=== PATIENT | male | born 1970 | race Caucasian/White ===

== ENCOUNTER 2024-08-31 08:18 | Emergency (ER) | payer OTHER, SELFPAY ==
--- NOTE | 2024-08-31 08:22 | ED_ITS ---
HPI - URI/Sore Throat General Chief Complaint: Upper Respiratory Infection Stated Complaint: SINUS HEADACHE Time Seen by Provider: 08/31/24 08:22 Source: patient Mode of arrival: ambulatory Limitations: no limitations History of Present Illness HPI Narrative: Danny is a 54 year old female patient presenting to the clinic today with c/o right side forehead sinus headache, nasal congestion, postnasal drip, and cough. Cough is nonproductive. States he thinks his headache may be due to a fractured tooth that occurred 1.5 weeks ago. States he has felt feverish but has not checked his temperature. Has been taking Aleve, ibuprofen, naproxen, Excedrin, and Tylenol for his headache without relief. Currently rates his headache a 8/10. No nausea or vomiting. No history migraine headaches. Denies any chest pain or shortness of breath. Related Data Home Medications ?Medication ?Instructions ?Recorded ?Confirmed ?Last Taken ?Type aripiprazole 2 mg tablet mg 08/31/24 Unknown History cariprazine 1.5 mg capsule mg 08/31/24 Unknown History (Vraylar) clonazepam 1 mg tablet mg 08/31/24 Unknown History clonidine HCl 0.3 mg tablet mg 08/31/24 Unknown History fluoxetine 40 mg capsule mg 08/31/24 Unknown History lisinopril 40 mg tablet mg 08/31/24 Unknown History Allergies Allergy/AdvReac Type Severity Reaction Status Date / Time No Known Allergies Allergy Verified 08/31/24 08:29 Review of Systems Review of Systems: Pertinent positives per HPI. Patient denies any rash, visual changes, dizziness, shortness of breath, chest pain, palpitations, nausea, vomiting, diarrhea, constipation, abdominal pain, or any urinary issues. PMFSH Comments At the time of my signature, I reviewed and agree with the nursing past medical, surgical, social, and family history. There is no relevant family history pertinent to the patient complaint. Exam Narrative: General: Well-developed, well nourished, in no apparent distress Head: Normocephalic, atraumatic Eyes: Pupils equally round and reactive to light bilaterally, EOM intact, sclera and conjunctive clear, no discharge, lids normal Ears: TMs intact and congested, ear canals clear, no drainage, grossly hearing normal. Nose: Nares patent, clear nasal discharge, mild inflammation, frontal sinus tenderness. Mouth: Oral pharynx red without lesions or masses, poor dentition, MMM. No obvious tooth fracture, postnasal drip Neck: Supple, trachea midline, no enlargement of anterior or posterior cervical nodes, no thyroid masses or goiter palpable. Cardio: Regular rate and rhythm, s1 and s2 normal, no murmur appreciated. Resp: Clear to auscultation bilaterally, no rhonchi, rales, wheezing or rubs Course Course Emergency Course: Portions of this record may have been created with voice recognition software. Level of Care: Express Care Visit Vital Signs Vital signs: Vital Signs Temperature 36.3 C L 08/31/24 08:33 Pulse Rate 79 08/31/24 08:33 Respiratory Rate 16 08/31/24 08:33 Blood Pressure 123/93 H 08/31/24 08:33 Pulse Oximetry 99 08/31/24 08:33 Temperature 36.3 C L 08/31/24 08:33 Pulse Rate 79 08/31/24 08:33 Respiratory Rate 16 08/31/24 08:33 Blood Pressure 123/93 H 08/31/24 08:33 Pulse Oximetry 99 08/31/24 08:33 Vital signs reviewed MDM - URI/Sore Throat MDM Narrative Medical decision making narrative: At the time of visit patient is resting comfortably on the exam table. Patient appears to be nontoxic. C/o right side forehead sinus headache, nasal congestion, postnasal drip, and cough. Cough is nonproductive. States he thinks his headache may be due to a fractured tooth that occurred 1.5 weeks ago. States he has felt feverish but has not checked his temperature. Has been taking Aleve, ibuprofen, Excedrin, and Tylenol for his headache without relief. Currently rates his headache a 8/10. No nausea or vomiting. No history of mi graine headaches. Denies any chest pain or shortness of breath. Labs: COVID and influenza testing was negative in the clinic today. Plan: I suspect patient has URI/sinus headache. Prescription for prednisone was sent to the pharmacy. Supportive measures were discussed with the patient and they voiced understanding discharge instructions and agrees to treatment plan. Return precautions reviewed Differential Diagnosis Differential diagnosis: Likely otitis media, sinusitis, viral infection, bronchitis, influenza, pharyngitis and other (COVID); Unlikely upper respiratory infection Lab Data Labs: Lab Results 08/31/24 Range/Units 08:59 POC Influenza A Ag Negative (Negative) POC Influenza B Ag Negative (Negative) POC SARS CoV-2 Ag Negative (Negative) Discharge Plan Discharge Clinical Impression: Sinus headache Upper respiratory infection Qualifiers: URI type: unspecified URI Qualified Code(s): J06.9 - Acute upper respiratory infection, unspecified Patient Disposition: Home Condition: Stable Instructions: Antibiotic Form, Acute Headache (ED), Cold Symptoms (ED) Additional Instructions: COVID and influenza testing was negative in the clinic today. Take prescription medications only as prescribed-prednisone Increase fluids and stay well hydrated Tylenol/motrin for pain/fever Flonase and OTC antihistamines as directed Vicks vapor rub to open sinuses Sinus rinses for congestion Cepacol spray, cough drops, throat lozenges, warm tea with honey/lemon, gargle salt water to soothe throat BRAT diet for diarrhea Clear liquids x 24 hours then advance as tolerated for nausea/vomiting Go to the ED if you develop a worsening in your condition- high fever not controlled by Tylenol or Motrin, dehydration, weakness, lethargy, shortness of breath, or chest pain. Follow up with your PCP in 3-5 days if symptoms persist. Patient Language: East [place]orese Prescriptions: New prednisone 20 mg tablet 40 mg PO DAILY 5 Days Qty: 10 0RF No Action fluoxetine 40 mg capsule clonidine HCl 0.3 mg tablet clonazepam 1 mg tablet lisinopril 40 mg tablet aripiprazole 2 mg tablet Vraylar 1.5 mg capsule Follow-up/Referrals: UNKNOWN,DOCTOR [Primary Care Provider] - Time of Disposition: 09:14 Quality NIHSS Nursing Documentation ED NIHSS nursing documentation: reviewed/agree
[2024-08-31 08:33] VITALS: BP 123/93; PULSE 79; RESP 16; TEMP 36.3; O2SAT 99
[2024-08-31 09:01] LABS: EDCOVIDSCREEN Negative (Negative)
[2024-08-31 09:02] LABS: EDINFLUASCREEN Negative (Negative); EDINFLUBSCREEN Negative (Negative)
== END 2024-08-31 09:22 | disposition home or self-care (01) ==
PROVIDERS: Emergency Provider Nurse Practitioner Family
DX: H51.9 Unspecified disorder of binocular movement (principal); J06.9 Acute upper respiratory infection, unspecified; Z20.822 Contact with and (suspected) exposure to COVID-19; I10 Essential (primary) hypertension
CPT/HCPCS: 87426; 87804; 99203; G0463

== ENCOUNTER 2024-09-26 12:09 | Emergency (ER) | payer OTHER, SELFPAY ==
--- NOTE | ~2024-09-26 | XR_ITS ---
EXAMINATION: XR toe 1st RT min 2V DATE: 09/26/2024 13:12 INDICATION: Swelling, infection, history of multiple surgeries, osteomyelitis TECHNIQUE: 2 COMPARISON: None FINDINGS: Orthopedic screws are noted in the first metatarsal without radiographic evidence for loosening. Orthopedic screw in the proximal phalanx of the great toe without radiographic evidence for loosening. Metallic screw in the middle and proximal phalanges of the second toe without radiographic evidence for loosening. No fracture. No dislocation. Soft tissue swelling is noted. Moderate narrowing of the first metatarsophalangeal joint. Possible subluxation of the second metatarsophalangeal joint. There are moderate-sized lucencies in the head of the proximal phalanx of the great toe and base of the distal phalanx of the great toe. There is bony irregular about the interphalangeal joint of the great toe. Findings are concerning for osteomyelitis. IMPRESSION: 1.There are moderate-sized lucencies in the head of the proximal phalanx of the great toe and base of the distal phalanx of the great toe. There is bony irregular about the interphalangeal joint of the great toe. Findings are concerning for osteomyelitis in the proximal and distal phalanges of the great toe. Consider an MRI with and without contrast for further assessment. 2.Possible subluxation of the second metatarsophalangeal joint. Reviewed, dictated and finalized at location Q. IMPRESSION: 1.There are moderate-sized lucencies in the head of the proximal phalanx of the great toe and base of the distal phalanx of the great toe. There is bony irreg ular about the interphalangeal joint of the great toe. Findings are concerning for osteomyelitis in the proximal and distal phalanges of the great toe. Consid er an MRI with and without contrast for further assessment. 2.Possible subluxation of the second metatarsophalangeal joint.
--- OUTSIDE RECORDS SUMMARY | 2024-09-26 12:14 | XMS_ITS | Encounter Summary ---
Author Organization [facility] Address [address] [place] [address] Care Team Providers Care Mount Loader Name Role Phone Unavailable Primary Care Provider Unavailabl e Encounter Details Date Type Department Care Team (Late st Contact Info) Description 05/22/2024 MyChart Message Enc [facility] Medical [facility] [address] [place] [phone] Jing Doran, MANAGER LIFE [address] [place] [address] I never received Social History Tobacco Use Types Packs/Day Years Used Date Smoking Tobacco: Never Passive Smoke Exposure: Past Smokeless Tobacco: Never Alcohol Use Standard Drinks/Week Comments Not Currently 0 (1 standard drink = 0.6 oz pur e alcohol) PHQ-2 Answer Date Recorded Patient Health Questionnaire-2 Score 6 04/01/2024 Sex and Gender Information Value Date Recorded Sex Assigned at Male 04/01/2024 11:09 AM CABLE SPLICER Legal Sex Male 9:36 PM CABLE SPLICER Gender Identity Not on file Sexual Orientation Not on file documented as of this encounter Plan of Treatment Not on file documented as of this encounter Visit Diagnoses Not on filedocumented in this encounter Additional Health Concerns Assessment Noted Time PHQ-9 Depression Total Score: 20 025 11:26 AM CABLE SPLICER documented as of this encounter
--- OUTSIDE RECORDS SUMMARY | 2024-09-26 12:14 | XMS_ITS | Clinical Summary ---
Author Organization [facility] Address [address] [place] [address] Care Team Providers Care Research Worker Encyclopedia Name Role Phone Unavailable Primary Care Provider Unavailabl e Allergies Active Allergy Reactions Criticality Noted Date Comments Citalopram Other (see comment),Unknown 11/10/2019 Caused tongue to swell up Diclofenac GI Upset,Nausea Only 07/13/2014 caused problems with my stomach ulcers Haloperidol Other (see comment) High 04/01/2024 Tardive dyskinesia Methocarbamol GI Upset,Nausea Only 07/13/2014 caused problems with my stomach ulcers Morphine Nausea Only,Other (s ee comment),Unknown 10/02/2014 constipation Medications doxepin (SINEQUAN) 50 MG capsule Take 1 capsule (50 mg total) by mouth. 4 Active lisinopril (PRINIVIL) 10 MG tablet Take 1 tablet (10 mg total) by mouth every morning. 4 11/19/19 25 Active pregabalin (LYRICA) 200 MG capsule Take 1 capsule (200 mg total) by mouth. 4 Active QUEtiapine (SEROQUEL) 100 MG tablet Take 0.5 tablets (50 mg total) by mouth. 4 Active BELSOMRA 15 MG Tab Take 1 tablet by mouth daily. 5 Active chlordiazePOXIDE (LIBRIUM) 25 MG capsule 5 Active omeprazole (PRILOSEC) 20 MG capsule Take 1 capsule (20 mg total) by mouth daily. Active buPROPion SR (WELLBUTRIN SR) 150 MG 12 hr tablet Take 1 tablet (150 mg total) by mouth 2 (two) times daily. Active B ebrdsbh-S-veozq acid 0.8 mg (DIALYVITE/NEPHRO -SUNIL) Tab tablet Take 1 tablet by mouth daily. Active docusate (COLACE) 50 MG/5ML liquid Take 5 mLs (50 mg total) by mouth daily. Active fish oil (OMEGA-3 FATTY ACID) 1000 MG Cap capsule Take 1 capsule (1,000 mg total) by mouth 2 (two) times daily. Active prazosin (MINIPRESS) 1 MG capsule Take 1 capsule (1 mg total) by mouth nightly at bedtime. Active prazosin (MINIPRESS) 2 MG capsule Take 1 capsule (2 mg total) by mouth nightly at bedtime. Active sertraline (ZOLOFT) 100 MG tablet Take 1 tablet (100 mg total) by mouth daily. Active loratadine (CLARITIN) 10 MG tablet Take 1 tablet (10 mg total) by mouth daily. Active melatonin 1 MG tablet Take 1 tablet (1 mg total) by mouth nightly as needed. Active propranolol (INDERAL) 10 MG tablet Take 1 tablet (10 mg total) by mouth nightly at bedtime. Pt taking qhs only Active hydrOXYzine (VISTARIL) 50 MG capsule Take 1 capsule (50 mg total) by mouth 3 (three) times daily as needed for Itching. Active tiZANidine (ZANAFLEX) 4 MG tabletIndications :Foot spasms Take 1 tablet (4 mg total) by mouth every 4 (four) hours as needed. 120 tablet 1 5 Active silver sulfADIAZINE (SILVADENE) 1 % creamIndications: Cellulitis of foot Apply topically daily. 30 g 3 5 Active Active Problems Problem Noted Date Diagnosed Date Acquired hallux varus of right foot 04/11/2024 Painful orthopaedic hardware 04/11/2024 Hammer toe of right foot 04/11/2024 Lumbar degenerative disc disease 12/03/2023 Foot spasms 10/24/2022 Passive suicidal ideations 11/24/2021 Borderline personality disorder ([facility] ) 08/19/2021 Insomnia due to other mental disorder 03/15/2021 Restless legs syndrome 06/07/2020 Overview (04/01/2024): Last Assessment & Plan: Condition: stable Follow up in: three months Bipolar 2 disorder ([facility]) 04/13/2020 FELIBERTO (generalized anxiety disorder) 11/10/2019 MDD (major depressive disord er), recurrent episode, moderate 11/10/2019 Bipolar 1 disorder ([facility]) 03/14/2019 Overview (04/01/2024): Last Assessment & Plan: Condition: symptomatic No recent mental health visit. Advised to follow up Medications: Taking medications as prescribed If taking medications, do not stop treatment without consulting healthcare provider. If symptoms worsen or do not improve/stabilize, notify health care provider right away. If thoughts of harming self or others notify health care provider immediately &/or seek urgent/emergent care including calling Suicide Hotline (932 or ) or 921. Follow up in three months with PCP Bipolar disorder with depression ([facility]/ [facility]) 03/14/2019 Hypertriglyceridemia 03/14/2019 Essential hypertension 01/25/2018 Overview (04/01/2024): Last Assessment & Plan: Condition: stable Follow up in: three months Chronic post-traumatic stress disorder 7 Overview (04/01/2024): Last Assessment & Plan: Condition: symptomatic Follow up in: three months History of substance abuse 11/10/2016 Lumbar disc herniation with radiculopathy 2014 Immunizations Immunization Administration Dates Next Due Fluzone (IIV3, Trivalent, 0.5 ML Prefilled Syrin ) 04/01/2024 Family History Relation Status Comments Father Mother Social History Tobacco Use Types Packs/Day Years Used Date Smoking Tobacco: Never Passive Smoke Exposure: Past Smokeless Tobacco: Never Tobacco Cessation:Counseling Given: No Alcohol Use Standard Drinks/Week Comments Not Currently 0 (1 standard drink = 0.6 oz pur e alcohol) PHQ-2 Answer Date Recorded Patient Health Questionnaire-2 Score 6 04/01/2024 Sex and Gender Information Value Date Recorded Sex Assigned at Male 04/01/2024 11:09 AM BID MANAGER Legal Sex Male 9:36 PM BID MANAGER Gender Identity Not on file Sexual Orientation Not on file Last Filed Vital Signs Vital Sign Reading Time Taken Comments Blood Pressure 132/86 05/05/2024 9:03 AM CDT Pulse 96 06/05/2024 10:41 AM CDT Temperature 36.1 C (97 F) 04/30/2024 2:11 PM CDT Respiratory Rate 18 04/30/2024 2:46 PM CDT Oxygen Saturation 99% 06/05/2024 10:41 AM CDT Inhaled Oxygen Concentration - - Weight 97.5 kg (215 lb) 04/30/2024 11:30 AM CDT Height 182.9 cm (6') 04/30/2024 11:30 AM CDT Body Mass Index 29.16 04/30/2024 11:30 AM CDT Plan of Treatment Health Maintenance Due Date Last Done Comments Colorectal Cancer Screening Colonoscopy (10 Years) 1972 Hepatitis C 1990 Hepatitis B Vaccines (1 of 3 - 19+ 3-dose series) 05/20/1991 Pneumococcal Vaccine: 50+ Years (1 of 1 - PCV) 2022 Zoster Vaccines (1 of 2) 2022 COVID-19 Vaccine (4 - 2023-2 5 season) 2023 01/04/2021, 04/15/2020, 03/16/2020 Annual Physical 04/01/2025 04/01/2024 DTaP, Tdap and Td Vaccines ( 2 - Td or Tdap) 01/25/2028 01/24/2018 PHQ-2 (Physician [place]) Completed 04/01/2024 Meningococcal B Vaccine Aged Out No l onger eligible based on patient's age to complete this topic Meningococcal Vaccine Aged Out No jessica abraham eligible based on patient's age to complete this topic RSV Immunizations Under 20 Months Aged Out No longer eligible b ased on patient's age to complete this topic Medical Devices Implanted Type Area Surveillance Manager Device Identifier Shelf Expiration Date Model / Serial / Lot Screw Acutrak 2 Mini 16.0mm - [id number] Implanted:Qty: 1 on 04/30/2024 by Jarett Han DPM at [facility] Screw Right: Toe [employer] 03/25/2030 [id number] / / [id number] Explanted Type Area Surveillance Manager Device Identifier Shelf Expiration Date Model / Serial / Lot Drill Bit Micro Acumed - [id number] Explanted:Qty: 1 on 04/30/2024 at [facility] Drill Right: Toe [employer] [id number] / / Drill Acumed Mini - [id number] Explanted:Qty: 1 on 04/30/2024 at [facility] Drill Right: Toe [employer] [id number] / / Drill Bit Mini Cannulated Accutrak 2 [employer] - [id number] Explanted:Qty: 1 on 04/30/2024 at [facility] Drill Right: Toe [employer] [id number] / / Drill Bit Micro [employer]umed - [id number] Explanted:Qty: 1 on 04/30/2024 at [facility] Drill Right: Toe [employer] [id number] / / Insurance
--- OUTSIDE RECORDS SUMMARY | 2024-09-26 12:14 | XMS_ITS | Encounter Summary ---
Author Organization [facility] Address [address] [place] [address] Care Team Providers Care Instrument And Electrical Technician Name Role Phone Unavailable Primary Care Provider Unavailabl e Encounter Details Date Type Department Care Team (Late st Contact Info) Description 05/29/2024 MyChart Message Enc [facility] [place] [address] [facility], [place] [address] Jarett Han, DPCarly [address] [place] [phone] My big toe Social History Tobacco Use Types Packs/Day Years Used Date Smoking Tobacco: Never Passive Smoke Exposure: Past Smokeless Tobacco: Never Alcohol Use Standard Drinks/Week Comments Not Currently 0 (1 standard drink = 0.6 oz pur e alcohol) PHQ-2 Answer Date Recorded Patient Health Questionnaire-2 Score 6 04/01/2024 Sex and Gender Information Value Date Recorded Sex Assigned at Male 04/01/2024 11:09 AM STOCK PREPARATION SUPERVISOR Legal Sex Male 9:36 PM STOCK PREPARATION SUPERVISOR Gender Identity Not on file Sexual Orientation Not on file documented as of this encounter Plan of Treatment Not on file documented as of this encounter Visit Diagnoses Not on filedocumented in this encounter Additional Health Concerns Assessment Noted Time PHQ-9 Depression Total Score: 20 025 11:26 AM STOCK PREPARATION SUPERVISOR documented as of this encounter
--- OUTSIDE RECORDS SUMMARY | 2024-09-26 12:14 | XMS_ITS | Encounter Summary ---
Author Organization [facility] Address [address] [place] [address] Care Team Providers Care Counselor Aide Name Role Phone Unavailable Primary Care Provider Unavailabl e Encounter Details Date Type Department Care Team (Late st Contact Info) Description 06/01/2024 MyChart Message Enc [facility] [place] [address] [facility], [place] [address] Jarett Han, DPCarly [address] [place] [phone] Purple in spots Social History Tobacco Use Types Packs/Day Years Used Date Smoking Tobacco: Never Passive Smoke Exposure: Past Smokeless Tobacco: Never Alcohol Use Standard Drinks/Week Comments Not Currently 0 (1 standard drink = 0.6 oz pur e alcohol) PHQ-2 Answer Date Recorded Patient Health Questionnaire-2 Score 6 04/01/2024 Sex and Gender Information Value Date Recorded Sex Assigned at Male 04/01/2024 11:09 AM CUSTOM APPLICATOR Legal Sex Male 9:36 PM CUSTOM APPLICATOR Gender Identity Not on file Sexual Orientation Not on file documented as of this encounter Plan of Treatment Not on file documented as of this encounter Visit Diagnoses Not on filedocumented in this encounter Additional Health Concerns Assessment Noted Time PHQ-9 Depression Total Score: 20 025 11:26 AM CUSTOM APPLICATOR documented as of this encounter
--- OUTSIDE RECORDS SUMMARY | 2024-09-26 12:14 | XMS_ITS | Encounter Summary ---
Author Organization [facility] Address [address] [place] [address] Care Team Providers Care Child Health Associate Name Role Phone Unavailable Primary Care Provider Unavailabl e Encounter Details Date Type Department Care Team (Late st Contact Info) Description 05/15/2024 MyCQuantumt Message Enc [facility] Medical [facility] [place] [address] [facility], [place] [address] Jarett Han, DPCarly [address] [place] [phone] My foot is bleeding Social History Tobacco Use Types Packs/Day Years Used Date Smoking Tobacco: Never Passive Smoke Exposure: Past Smokeless Tobacco: Never Alcohol Use Standard Drinks/Week Comments Not Currently 0 (1 standard drink = 0.6 oz pur e alcohol) PHQ-2 Answer Date Recorded Patient Health Questionnaire-2 Score 6 04/01/2024 Sex and Gender Information Value Date Recorded Sex Assigned at Male 04/01/2024 11:09 AM ETHNIC ORIGINS TEACHER Legal Sex Male 9:36 PM ETHNIC ORIGINS TEACHER Gender Identity Not on file Sexual Orientation Not on file documented as of this encounter Plan of Treatment Not on file documented as of this encounter Visit Diagnoses Not on filedocumented in this encounter Additional Health Concerns Assessment Noted Time PHQ-9 Depression Total Score: 20 025 11:26 AM ETHNIC ORIGINS TEACHER documented as of this encounter
[2024-09-26 12:25] VITALS: BP 111/79; PULSE 88; RESP 18; TEMP 36.4; O2SAT 98
--- NOTE | 2024-09-26 12:51 | ED_ITS ---
HPI - Extremity Injury (Lower) General Chief Complaint: Extremity Injury, Lower Stated Complaint: r big toe swollen, surgery 6 wks ago Time Seen by Provider: 09/26/24 12:15 History of Present Illness HPI Narrative: This is a 54-year-old male with history of hypertension, depression who presents to the ED for right great toe pain. Patient states that he has had multiple procedures to his right great toe after initially having his straining procedure. This was complicated by multiple episodes of infected hardware. Most recent surgery was about 3 months ago in [facility]. He just recently moved to this area. He reports that for the past week, he has had worsening swelling and redness to the right great toe. It does not spread beyond his toe. Denies fevers, chills. He has had difficulty standing for long periods of time to this. Related Data Home Medications ?Medication ?Instructions ?Recorded ?Confirmed ?Last Taken ?Type aripiprazole 2 mg tablet mg 08/31/24 Unknown History cariprazine 1.5 mg capsule mg 08/31/24 Unknown Histor y (Vraylar) clonazepam 1 mg tablet mg 08/31/24 Unknown History clonidine HCl 0.3 mg tablet mg 08/31/24 Unknown Histo ry fluoxetine 40 mg capsule mg 08/31/24 Unknown History lisinopril 40 mg tablet mg 08/31/24 Unknown History Allergies Allergy/AdvReac Type Severity Reaction Status Date / Time No Known Allergies Allergy Verified 08/31/24 08:29 Review of Systems 2 Review of Systems: Gen.: Denies fevers or chills Eyes: Denies eye pain or visual change ENT: Denies congestion Respiratory: Denies shortness of breath or cough CV: Denies chest pain or palpitations GI: Denies abdominal pain nausea, emesis or diarrhea denies burning, urgency, frequency or hematuria Musculoskeletal: Denies back pain or muscle pain Neuro: Denies numbness, tingling, weakness or focal weakness Skin: As per HPI Except as documented, all other systems reviewed and negative Exam 2 Narrative: APPEARANCE: No acute distress, nontoxic, resting in bed HEENT: Normocephalic, atraumatic, OMM RESPIRATORY: No respiratory distress CARDIOVASCULAR: Appears well perfused ABDOMINAL: Nondistended MUSCULOSKELETAl: Tenderness and erythema over the right great toe, mild pain with passive flexion. No lymphangitis. NEURO: Awake and alert. SKIN:: Warm, dry. No rashes lesions or abrasions PSYCHIATRIC: Normal affect/mood, Course Vital Signs Vital signs: Vital Signs Temperature 97.5 F L 09/26/24 12: Pulse Rate 88 09/26/24 12:25 Respiratory Rate 18 09/26/24 12:25 Blood Pressure 111/79 09/26/24 12:25 Pulse Oximetry 98 09/26/24 12:25 Oxygen Delivery Room Air 09/26/24 12:25 Temperature 97.5 F L 09/26/24 12:25 Pulse Rate 88 09/26/24 12:25 Respiratory Rate 18 09/26/24 12:25 Blood Pressure 111/79 09/26/24 12:25 Pulse Oximetry 98 09/26/24 12:25 Oxygen Delivery Room Air 09/26/24 12:25 MDM - Extremity Injury (Lower) MDM Narrative Medical decision making narrative: 54 yo male that presented to the ED for r great toe swelling and redness for 1 week. Patient had multiple procedures to the great toe in the past in [facility] most recently aobut 12 weeks ago to have hardware removed. Right great toe is significantly swollen with erythema but no lymphangitis. Xray showed possible osteomyelitis. I discussed the case with Dr. Jean, orthopedic surgery, suspects the xray findings are more likely chronic and recommends outpatient follow up, recommends CBC, CMP, ESR, CRP to trend outpatient. Patient will be started on clindamycin. Patient was given an orthoshoe. Patient was agreeable to this plan. Given strict return precautions. Differential Diagnosis Differential diagnosis: Likely other (cellulitis, osteomyelitis, gout) Medical Records Attestation: I reviewed the patient's medical records. Lab Data Attestation: I reviewed the patient's lab results. 09/26/24 14:02 09/26/24 14:02 Labs: Lab Results 09/26/24 Range/Units 14:02 WBC 4.7 (4.5-10.0) K/mm3 RBC 4.36 L (4.6-6.20) M/mm3 Hgb 12.1 L (14.0-18.0) g/dL Hct 36.6 L (42.0-52.0) % MCV 83.9 (80-100) fl MCH 27.8 (26-34) pg MCHC 33.1 (32-36) g/dl RDW 13.2 (11.5-14.5) % Plt Count 351 (150-375) k/mm3 MPV 9.8 (7.4-10.4) fl Immature Gran % (Auto) 0.4 (0-0.5) % Neut % (Auto) 54.7 (45.5-73.1) % Lymph % (Auto) 33.3 (18.3-44.2) % [place] % (Auto) 7.1 (2.6-8.5) % Eos % (Auto) 4.1 (0-4.4) % Baso % (Auto) 0.4 (0.2-1.2) % Lymph # (Auto) 1.56 (0.9-3.2) K/mm3 [place] # (Auto) 0.3 (0.1-0.6) K/mm3 Eos # (Auto) 0.2 (0-0.3) K/mm3 Baso # (Auto) 0.0 (0.0-0.1) K/mm3 Abs Immat Gran (auto) 0.02 (0.00-0.031) K/mm3 Absolute Neuts (auto) 2.6 (1.3-6.7) K/mm3 Absolute Nucleated RBC 0.000 (0.0-0.012) K/mm3 Nucleated RBC % 0.0 (0.0-0.2) % ESR 12 (0-20) mm/hr Sodium 137 (137-145) mmol/L Potassium 4.4 (3.4-5.0) mmol/L Chloride 104 (98-107) mmol/L Carbon Dioxide 24 (22-30) mmol/L Anion Gap 9 (4-12) mmol/L BUN 9 (9-20) mg/dL Creatinine 1.19 (0.7-1.3) mg/dL Estim Creat Clear Calc 71 ml/min Estimated GFR > 60 (59 - ) Glucose 95 (65-110) mg/dL Calcium 9.1 (8.4-10.2) mg/dL Total Bilirubin 0.5 (0.2-1.3) mg/dL AST 32 (17-59) U/L ALT 31 (6-50) U/L Alkaline Phosphatase 67 (38-126) U/L C-Reactive Protein < 0.5 (<1.0) mg/dL Total Protein 7.0 (6.3-8.2) g/dL Albumin 4.4 (3.5-5.1) g/dL Imaging Data Radiologist's impression: Impressions Toe X-Ray 09/26/24 13:28 IMPRESSION: 1.There are moderate-sized lucencies in the head of the proximal phalanx of the great toe and base of the distal phalanx of the great toe. There is bony irregular about the interphalangeal joint of the great toe. Findings are concerning for osteomyelitis in the proximal and distal phalanges of the great toe. Consider an MRI with and without contrast for further assessment. 2.Possible subluxation of the second metatarsophalangeal joint. Discharge Plan Discharge Clinical Impression: Osteomyelitis Patient Disposition: Home Condition: Stable Instructions: Antibiotic Form Additional Instructions: You were found to have evidence of osteomyelitis on her x-ray. I spoke with the orthopedic surgeon, Dr. Jean, who once you to call his office on Sunday and he will help as she or infection. You were given a prescription for clindamycin, take this as prescribed. For pain, discomfort or temperature greater than or equal to 100.8 ?F please alternate the following 2 medications as needed. First medication- acetaminophen/Tylenol- 1000mg every 6-8 hours as needed for above indications. Second medication- ibuprofen/Motrin-600mg every 6-8 hours as needed for above indication. Return to the ED for any new or worsening symptoms. Patient Language: Indian Prescriptions: New clindamycin HCl [Cleocin HCl] 300 mg capsule 600 mg PO Q8H Qty: 30 0RF No Action fluoxetine 40 mg capsule clonidine HCl 0.3 mg tablet clonazepam 1 mg tablet lisinopril 40 mg tablet aripiprazole 2 mg tablet Vraylar 1.5 mg capsule prednisone 20 mg tablet 40 mg PO DAILY 5 Days Qty: 10 0RF Follow-up/Referrals: PHYSICIAN NOT ON STAFF,NONSTAFF [Non-Staff] Jam Jean MD [Physician, Orthopedics] Referral Note: Call on sunday to schedule an appointment
--- OUTSIDE RECORDS SUMMARY | 2024-09-26 12:53 | XMS_ITS | Clinical Summary ---
Author Organization [facility] Address [address] [place] [address] Care Team Providers Care Agricultural Education Teacher Name Role Phone Unavailable Primary Care Provider [...] mouth 2 (two) times daily. Active B oaihilr-J-vquxr acid 0.8 mg (DIALYVITE/NEPHRO -SUNIL) Tab tablet [...] Passive suicidal ideations 11/24/2021 Borderline personality disorder ([facility]HCC [facility] ) 08/19/2021 Insomnia due to other mental disorder 03/15/2021 Restless legs syndrome 06/07/2020 Overview (04/01/2024): Last Assessment & Plan: Condition: stable Follow up in: three months Bipolar 2 disorder ([facility]) 04/13/2020 FELIBERTO (generalized anxiety disorder) 11/10/2019 MDD (major depressive disord er), recurrent episode, moderate 11/10/2019 Bipolar 1 disorder ([facility]) 03/14/2019 Overview (04/01/2024): Last Assessment & Plan: [...] seek urgent/emergent care including calling Suicide Hotline (538 or ) or 501. Follow up in three months with PCP Bipolar disorder with depression ([facility]/ [facility]) 03/14/2019 Hypertriglyceridemia 03/14/2019 Essential hypertension 01/25/2018 [...] Sex Assigned at Male 04/01/2024 11:09 AM TALENT ACQUISITION PROJECT MANAGER Legal Sex Male 9:36 PM TALENT ACQUISITION PROJECT MANAGER Gender Identity Not on file Sexual [...] Td or Tdap) 01/25/2028 01/24/2018 PHQ-2 (Physician [place]) Completed 04/01/2024 Meningococcal B Vaccine Aged Out No l onger eligible based on patient's age to complete this topic Meningococcal Vaccine Aged Out No jessica abraham eligible based on patient's age to complete this topic RSV Immunizations Under 20 Months Aged Out No longer eligible b ased on patient's age to complete this topic Medical Devices Implanted Type Area Business Development Director Device Identifier Shelf Expiration Date Model / Serial / Lot Screw Acutrak 2 Mini 16.0mm - [id number] Implanted:Qty: 1 on 04/30/2024 by Jarett Han DPM at [facility] Screw Right: Toe [employer] 03/25/2030 AT2-M16-[id number] / / [id number] Explanted Type Area Business Development Director Device Identifier Shelf Expiration Date Model / Serial / Lot Drill Bit Micro Acumed - [id number] Explanted:Qty: 1 on 04/30/2024 at [facility] Drill Right: Toe [employer] AT2-1509 / / Drill Acumed Mini - [id number] Explanted:Qty: 1 on 04/30/2024 at [facility] Drill Right: Toe [employer] [id number] / / Drill Bit Mini Cannulated Accutrak 2 [employer]source - [id number] Explanted:Qty: 1 on 04/30/2024 at [facility] Drill Right: Toe [employer] [id number] / / Drill Bit Micro Acumed - [id number] Explanted:Qty: 1 on 04/30/2024 at [facility] Drill Right: Toe [employer] AT2-1509 / / Insurance
--- OUTSIDE RECORDS SUMMARY | 2024-09-26 12:53 | XMS_ITS | Encounter Summary ---
Author Organization [facility] Address [address] [place] [address] Care Team Providers Care Trolley Collector Name Role Phone Unavailable Primary Care Provider Unavailabl e Encounter Details Date Type Department Care Team (Late st Contact Info) Description 05/29/2024 MyChart Message Enc [facility] [place] [address] [facility], [place] [address] Jarett Han, DPCarly [address] [place] [address] My big toe Social History Tobacco [...] Sex Assigned at Male 04/01/2024 11:09 AM BOMBSIGHT SPECIALIST Legal Sex Male 9:36 PM BOMBSIGHT SPECIALIST Gender Identity Not on file Sexual Orientation Not on file documented as of this encounter Plan of Treatment Not on file documented as of this encounter Visit Diagnoses Not on filedocumented in this encounter Additional Health Concerns Assessment Noted Time PHQ-9 Depression Total Score: 20 025 11:26 AM BOMBSIGHT SPECIALIST documented as of this encounter
--- OUTSIDE RECORDS SUMMARY | 2024-09-26 12:54 | XMS_ITS | Encounter Summary ---
Author Organization [facility] Address [address] [place] [address] Care Team Providers Care Tare Worker Name Role Phone Unavailable Primary Care Provider Unavailabl e Encounter Details Date Type Department Care Team (Late st Contact Info) Description 05/22/2024 MyChart Message Enc [facility] Medical Group Multispecialty [facility] [address] [place] [phone] Jing Doran, HEALTH CARE SANITARY TECHNICIAN [address] [place] [address] I never received Social History [...] Sex Assigned at Male 04/01/2024 11:09 AM BASKET WEAVER Legal Sex Male 9:36 PM BASKET WEAVER Gender Identity Not on file Sexual Orientation Not on file documented as of this encounter Plan of Treatment Not on file documented as of this encounter Visit Diagnoses Not on filedocumented in this encounter Additional Health Concerns Assessment Noted Time PHQ-9 Depression Total Score: 20 025 11:26 AM BASKET WEAVER documented as of this encounter
--- OUTSIDE RECORDS SUMMARY | 2024-09-26 12:54 | XMS_ITS | Encounter Summary ---
Author Organization [facility] Address [address] [place] [address] Care Team Providers Care Sole Leveler Name Role Phone Unavailable Primary Care Provider Unavailabl e Encounter Details Date Type Department Care Team (Late st Contact Info) Description 06/01/2024 MyChart Message Enc [facility] [place] [address] [facility], [place] [address] Jarett Han, DPCarly [address] [place] [address] Purple in spots Social History Tobacco [...] Sex Assigned at Male 04/01/2024 11:09 AM CUFF TURNER MACHINE OPERATOR Legal Sex Male 9:36 PM CUFF TURNER MACHINE OPERATOR Gender Identity Not on file Sexual Orientation Not on file documented as of this encounter Plan of Treatment Not on file documented as of this encounter Visit Diagnoses Not on filedocumented in this encounter Additional Health Concerns Assessment Noted Time PHQ-9 Depression Total Score: 20 025 11:26 AM CUFF TURNER MACHINE OPERATOR documented as of this encounter
--- OUTSIDE RECORDS SUMMARY | 2024-09-26 12:54 | XMS_ITS | Encounter Summary ---
Author Organization [facility] Address [address] [place] [address] Care Team Providers Care Electron Beam Welding Machine Operator Name Role Phone Unavailable Primary Care Provider Unavailabl e Encounter Details Date Type Department Care Team (Late st Contact Info) Description 05/15/2024 MyCPublicStufft Message Enc [facility] [place] [address] [facility], [place] [address] Jarett Han, DPCarly [address] [place] [address] My foot is bleeding Social History [...] Sex Assigned at Male 04/01/2024 11:09 AM COGNOS LEAD Legal Sex Male 9:36 PM COGNOS LEAD Gender Identity Not on file Sexual Orientation Not on file documented as of this encounter Plan of Treatment Not on file documented as of this encounter Visit Diagnoses Not on filedocumented in this encounter Additional Health Concerns Assessment Noted Time PHQ-9 Depression Total Score: 20 025 11:26 AM COGNOS LEAD documented as of this encounter
[2024-09-26] MEDS: KETOROLAC 30 MG/ML VIAL (*BKC) IM (13:59)
[2024-09-26 14:13] LABS: Hematocrit 36.6 % (42.0-52.0); Hemoglobin 12.1 g/dL (14.0-18.0); Immature Granulocyte Percent A 0.4 % (0-0.5); Lymphocytes Absolute Auto 1.56 K/mm3 (0.9-3.2); Mean Corpuscular HGB Conc 33.1 g/dl (32-36); Mean Corpuscular Hemoglobin 27.8 pg (26-34); Mean Corpuscular Volume 83.9 fl (80-100); Nucleated Red Blood Cells Absolute Auto 0.000 K/mm3 (0.0-0.012); Nucleated Red Blood Cells Perc 0.0 % (0.0-0.2); Platelet Count Result 351 k/mm3 (150-375); Red Blood Count 4.36 M/mm3 (4.6-6.20); White Blood Count 4.7 K/mm3 (4.5-10.0)
[2024-09-26 14:32] LABS: Alanine Aminotransferase 31 U/L (6-50); Albumin Level 4.4 g/dL (3.5-5.1); Alkaline Phosphatase 67 U/L (38-126); Anion Gap 9 mmol/L (4-12); Aspartate Amino Transferase 32 U/L (17-59); Bilirubin,Total 0.5 mg/dL (0.2-1.3); Blood Urea Nitrogen 9 mg/dL (9-20); CRP < 0.5 mg/dL (<1.0); Calcium 9.1 mg/dL (8.4-10.2); Carbon Dioxide 24 mmol/L (22-30); Chloride 104 mmol/L (98-107); Estimated CRCL calculation 71 ml/min; Estimated Glomerular Filt Rate > 60; Glucose 95 mg/dL (65-110); Potassium 4.4 mmol/L (3.4-5.0); Sodium 137 mmol/L (137-145); Total Protein 7.0 g/dL (6.3-8.2)
== END 2024-09-26 14:15 | disposition home or self-care (01) ==
PROVIDERS: Emergency Provider Student in an Organized Health Care Education/Training Program
DX: M86.9 Osteomyelitis, unspecified (principal); I10 Essential (primary) hypertension; F32.A Depression, unspecified; Z79.899 Other long term (current) drug therapy
CPT/HCPCS: 36415; 73660; 80053; 85025; 85652; 86140; 96372; 99283; J1885

== ENCOUNTER 2024-10-03 13:38 | Emergency (ER) | payer OTHER, SELFPAY ==
--- OUTSIDE RECORDS SUMMARY | 2024-10-03 13:41 | XMS_ITS | Encounter Summary ---
Author Organization [facility] Address [address] [place] [address] Care Team Providers Care Gum Rolling Machine Operator Name Role Phone Unavailable Primary Care Provider Unavailabl e Encounter Details Date Type Department Care Team (Late st Contact Info) Description 05/22/2024 MyChart Message Enc [facility] Medical Group Multispecial[facility] [address] [place] [phone] Jing Doran, INTERNAL AUDITOR [address] [place] [address] I never received Social History [...] Sex Assigned at Male 04/01/2024 11:09 AM INSTRUCTIONAL MATERIAL DIRECTOR Legal Sex Male 9:36 PM INSTRUCTIONAL MATERIAL DIRECTOR Gender Identity Not on file Sexual Orientation Not on file documented as of this encounter Plan of Treatment Not on file documented as of this encounter Visit Diagnoses Not on filedocumented in this encounter Additional Health Concerns Assessment Noted Time PHQ-9 Depression Total Score: 20 025 11:26 AM INSTRUCTIONAL MATERIAL DIRECTOR documented as of this encounter
--- OUTSIDE RECORDS SUMMARY | 2024-10-03 13:41 | XMS_ITS | Encounter Summary ---
Author Organization [facility] Address [address] [place] [address] Care Team Providers Care Chief Operator Synthesis Name Role Phone Unavailable Primary Care Provider Unavailabl e Encounter Details Date Type Department Care Team (Late st Contact Info) Description 06/01/2024 MyChart Message Enc [facility] [place] [address] [facility], [place] [address] Jarett Han, DPCarly [address] [place] [address] Purple in spots Social History Tobacco [...] Sex Assigned at Male 04/01/2024 11:09 AM INFORMIX DEVELOPER Legal Sex Male 9:36 PM INFORMIX DEVELOPER Gender Identity Not on file Sexual Orientation Not on file documented as of this encounter Plan of Treatment Not on file documented as of this encounter Visit Diagnoses Not on filedocumented in this encounter Additional Health Concerns Assessment Noted Time PHQ-9 Depression Total Score: 20 025 11:26 AM INFORMIX DEVELOPER documented as of this encounter
--- OUTSIDE RECORDS SUMMARY | 2024-10-03 13:41 | XMS_ITS | Encounter Summary ---
Author Organization [facility] Address [address] [place] [address] Care Team Providers Care Water And Fire Technician Name Role Phone Unavailable Primary Care Provider Unavailabl e Encounter Details Date Type Department Care Team (Late st Contact Info) Description 05/29/2024 MyChart Message Enc [facility] [place] [address] [facility], [place] [address] Jarett Han, DPCarly [address] [place] [address] My big toe Social History Tobacco [...] Sex Assigned at Male 04/01/2024 11:09 AM AIRCRAFT MECHANIC Legal Sex Male 9:36 PM AIRCRAFT MECHANIC Gender Identity Not on file Sexual Orientation Not on file documented as of this encounter Plan of Treatment Not on file documented as of this encounter Visit Diagnoses Not on filedocumented in this encounter Additional Health Concerns Assessment Noted Time PHQ-9 Depression Total Score: 20 025 11:26 AM AIRCRAFT MECHANIC documented as of this encounter
--- OUTSIDE RECORDS SUMMARY | 2024-10-03 13:41 | XMS_ITS | Encounter Summary ---
Author Organization [facility] Address [address] [place] [address] Care Team Providers Care Slate Roofer Helper Name Role Phone Unavailable Primary Care Provider Unavailabl e Encounter Details Date Type Department Care Team (Late st Contact Info) Description 05/15/2024 MyCAppSamet Message Enc [facility] Medical [facility] [place] [address] [facility], [place] [address] Jarett Han, DPCarly [address] [place] [address] My foot is bleeding Social History [...] Sex Assigned at Male 04/01/2024 11:09 AM MORTGAGE MANAGER Legal Sex Male 9:36 PM MORTGAGE MANAGER Gender Identity Not on file Sexual Orientation Not on file documented as of this encounter Plan of Treatment Not on file documented as of this encounter Visit Diagnoses Not on filedocumented in this encounter Additional Health Concerns Assessment Noted Time PHQ-9 Depression Total Score: 20 025 11:26 AM MORTGAGE MANAGER documented as of this encounter
--- OUTSIDE RECORDS SUMMARY | 2024-10-03 13:41 | XMS_ITS | Clinical Summary ---
Author Organization [facility] Address [address] [place] [address] Care Team Providers Care Latin Dancer Name Role Phone Unavailable Primary Care Provider [...] mouth 2 (two) times daily. Active B tmgqqvb-N-nzcjx acid 0.8 mg (DIALYVITE/NEPHRO -SUNIL) Tab tablet [...] Passive suicidal ideations 11/24/2021 Borderline personality disorder ([facility]/HCC [facility] ) 08/19/2021 Insomnia due to other mental disorder 03/15/2021 Restless legs syndrome 06/07/2020 Overview (04/01/2024): Last Assessment & Plan: Condition: stable Follow up in: three months Bipolar 2 disorder ([facility]) 04/13/2020 FELIBERTO (generalized anxiety disorder) 11/10/2019 MDD (major depressive disord er), recurrent episode, moderate 11/10/2019 Bipolar 1 disorder ([facility]) 03/14/2019 Overview (04/01/2024): Last Assessment & [...] seek urgent/emergent care including calling Suicide Hotline (217 or ) or 491. Follow up in three months with PCP Bipolar disorder with depression ([facility]/ [facility]) 03/14/2019 Hypertriglyceridemia 03/14/2019 Essential hypertension [...] Sex Assigned at Male 04/01/2024 11:09 AM WATER PUMP OPERATOR Legal Sex Male 9:36 PM WATER PUMP OPERATOR Gender Identity Not on file Sexual [...] Td or Tdap) 01/25/2028 01/24/2018 PHQ-2 (Physician [place]) Completed 04/01/2024 Meningococcal B Vaccine Aged Out No l onger eligible based on patient's age to complete this topic Meningococcal Vaccine Aged Out No jessica abraham eligible based on patient's age to complete this topic RSV Immunizations Under 20 Months Aged Out No longer eligible b ased on patient's age to complete this topic Medical Devices Implanted Type Area Rock Wool Insulator Device Identifier Shelf Expiration Date Model / Serial / Lot Screw Acutrak 2 Mini 16.0mm - [id number] Implanted:Qty: 1 on 04/30/2024 by Jarett Han DPM at [facility] Screw Right: Toe [employer] 03/25/2030 AT2-M16-S / / [id number] Explanted Type Area Rock Wool Insulator Device Identifier Shelf Expiration Date Model / Serial / Lot Drill Bit Micro [employer]umed - [id number] Explanted:Qty: 1 on 04/30/2024 at [facility] Drill Right: Toe [employer] AT2-1509 / / Drill Acumed Mini - [id number] Explanted:Qty: 1 on 04/30/2024 at [facility] Drill Right: Toe [employer] [id number] / / Drill Bit Mini Cannulated Accutrak 2 [employer] - [id number] Explanted:Qty: 1 on 04/30/2024 at [facility] Drill Right: Toe [employer] [id number] / / Drill Bit Micro [employer] - [id number] Explanted:Qty: 1 on 04/30/2024 at [facility] Drill Right: Toe [employer] AT2-1509 / / Insurance
[2024-10-03 14:00] VITALS: BP 104/69; PULSE 87; RESP 20; TEMP 37; O2SAT 100
--- OUTSIDE RECORDS SUMMARY | 2024-10-03 15:12 | XMS_ITS | Encounter Summary ---
Author Organization [facility] Address [address] [place] [id number] Care Team Providers Care Senior Corporate Accountant Name Role Phone Unavailable Primary Care Provider Unavailabl e Encounter Details Date Type Department Care Team (Late st Contact Info) Description 06/01/2024 MyChart Message Enc [facility] [place] [address] [facility] [address] [place] [address] Jarett Han, DPCarly [address] [place] [phone] Purple in spots Social History Tobacco [...] Sex Assigned at Male 04/01/2024 11:09 AM DINING ROOM HOSTESS Legal Sex Male 9:36 PM DINING ROOM HOSTESS Gender Identity Not on file Sexual Orientation Not on file documented as of this encounter Plan of Treatment Not on file documented as of this encounter Visit Diagnoses Not on filedocumented in this encounter Additional Health Concerns Assessment Noted Time PHQ-9 Depression Total Score: 20 025 11:26 AM DINING ROOM HOSTESS documented as of this encounter
--- OUTSIDE RECORDS SUMMARY | 2024-10-03 15:12 | XMS_ITS | Encounter Summary ---
Author Organization [facility] Address [address] [place] [id number] Care Team Providers Care Clinical Laboratory Manager Name Role Phone Unavailable Primary Care Provider Unavailabl e Encounter Details Date Type Department Care Team (Late st Contact Info) Description 05/29/2024 MyChart Message Enc [facility] [place] [address] [facility], [place] [address] Jarett Han, DPCarly [address] [place] [phone] My big toe Social History Tobacco [...] Sex Assigned at Male 04/01/2024 11:09 AM QUILL MACHINE TENDER Legal Sex Male 9:36 PM QUILL MACHINE TENDER Gender Identity Not on file Sexual Orientation Not on file documented as of this encounter Plan of Treatment Not on file documented as of this encounter Visit Diagnoses Not on filedocumented in this encounter Additional Health Concerns Assessment Noted Time PHQ-9 Depression Total Score: 20 025 11:26 AM QUILL MACHINE TENDER documented as of this encounter
--- OUTSIDE RECORDS SUMMARY | 2024-10-03 15:12 | XMS_ITS | Encounter Summary ---
Author Organization [facility] Address [address] [place] [address] Care Team Providers Care Subway Guard Name Role Phone Unavailable Primary Care Provider Unavailabl e Encounter Details Date Type Department Care Team (Late st Contact Info) Description 05/15/2024 [facility] [facility] Message Enc [facility] [place] [address] [facility], [place] [address] Jarett Han, DPCarly [address] [place] [phone] My foot is bleeding Social History [...] Sex Assigned at Male 04/01/2024 11:09 AM TABLE WORKER Legal Sex Male 9:36 PM TABLE WORKER Gender Identity Not on file Sexual Orientation Not on file documented as of this encounter Plan of Treatment Not on file documented as of this encounter Visit Diagnoses Not on filedocumented in this encounter Additional Health Concerns Assessment Noted Time PHQ-9 Depression Total Score: 20 025 11:26 AM TABLE WORKER documented as of this encounter
--- OUTSIDE RECORDS SUMMARY | 2024-10-03 15:12 | XMS_ITS | Clinical Summary ---
Author Organization [facility] Address [address] [place] [address] Care Team Providers Care Steward/Stewardess Bath Name Role Phone Unavailable Primary Care Provider [...] mouth 2 (two) times daily. Active B qpfxqis-L-vvfvy acid 0.8 mg (DIALYVITE/NEPHRO -SUNIL) Tab tablet [...] Passive suicidal ideations 11/24/2021 Borderline personality disorder ([facility] ) 08/19/2021 Insomnia due to other mental disorder 03/15/2021 Restless legs syndrome 06/07/2020 Overview (04/01/2024): Last Assessment & Plan: Condition: stable Follow up in: three months Bipolar 2 disorder ([facility]) 04/13/2020 FELIBERTO (generalized anxiety disorder) 11/10/2019 MDD (major depressive disord er), recurrent episode, moderate 11/10/2019 Bipolar 1 disorder ([facility]) 03/14/2019 Overview (04/01/2024): Last Assessment & [...] seek urgent/emergent care including calling Suicide Hotline (364 or ) or 331. Follow up in three months with PCP Bipolar disorder with depression ([facility]/ C) 03/14/2019 Hypertriglyceridemia 03/14/2019 Essential hypertension 01/25/2018 [...] Sex Assigned at Male 04/01/2024 11:09 AM WARP KNITTING MACHINE OPERATOR Legal Sex Male 9:36 PM WARP KNITTING MACHINE OPERATOR Gender Identity Not on file [...] Td or Tdap) 01/25/2028 01/24/2018 PHQ-2 (Physician Waterproof) Completed 04/01/2024 Meningococcal B Vaccine Aged Out No l onger eligible based on patient's age to complete this topic Meningococcal Vaccine Aged Out No jessica abraham eligible based on patient's age to complete this topic RSV Immunizations Under 20 Months Aged Out No longer eligible b ased on patient's age to complete this topic Medical Devices Implanted Type Area [employer] Specials Device Identifier Shelf Expiration Date Model / Serial / Lot Screw Acutrak 2 Mini 16.0mm - [id number] Implanted:Qty: 1 on 04/30/2024 by Jarett Han DPM at [facility] Screw Right: Toe [employer] 03/25/2030 AT2-M16-[id number] / / [id number] Explanted Type Area [employer] Che[employer] Specials Device Identifier Shelf Expiration Date Model / Serial / Lot Drill Bit Micro Acumed - [id number] Explanted:Qty: 1 on 04/30/2024 at [facility] Drill Right: Toe [employer] AT2-1509 / / Drill Acumed Mini - [id number] Explanted:Qty: 1 on 04/30/2024 at [facility] Drill Right: Toe [employer] [id number] / / Drill Bit Mini Cannulated Accutrak 2 [employer] - [id number] Explanted:Qty: 1 on 04/30/2024 at [facility] Drill Right: Toe [employer] [id number] / / Drill Bit Micro [employer] - [id number] Explanted:Qty: 1 on 04/30/2024 at [facility] Drill Right: Toe [employer] [id number] / / Insurance
--- OUTSIDE RECORDS SUMMARY | 2024-10-03 15:12 | XMS_ITS | Encounter Summary ---
Author Organization [facility] Address [address] [place] [address] Care Team Providers Care Back Tacker Name Role Phone Unavailable Primary Care Provider Unavailabl e Encounter Details Date Type Department Care Team (Late st Contact Info) Description 05/22/2024 MyChart Message Enc [facility] [address] [place] [phone] Jing Doran, MANAGER CARDIOLOGY [address] [place] [address] I never received Social History [...] Sex Assigned at Male 04/01/2024 11:09 AM DIABETES MANAGER Legal Sex Male 9:36 PM DIABETES MANAGER Gender Identity Not on file Sexual Orientation Not on file documented as of this encounter Plan of Treatment Not on file documented as of this encounter Visit Diagnoses Not on filedocumented in this encounter Additional Health Concerns Assessment Noted Time PHQ-9 Depression Total Score: 20 025 11:26 AM DIABETES MANAGER documented as of this encounter
--- NOTE | 2024-10-03 15:17 | ED_ITS ---
HPI - General Adult General Chief complaint: Wound/Laceration Stated complaint: osteomyelitis in right big toe Time Seen by Provider: 10/03/24 14:56 History of Present Illness HPI narrative: 54-year-old male with history of osteomyelitis presents to the emergency department for evaluation for worsening right right toe pain. Patient was evaluated emergency department last week and did have follow-up with Orthopedics. Ortho felt that this was most likely a chronic condition. Orthope dic states they do not take the patient's insurance and patient will have Related Data Home Medications ?Medication ?Instructions ?Recorded ?Confirmed ?Last Taken ?Type aripiprazole 2 mg tablet mg 08/31/24 Unknown History cariprazine 1.5 mg capsule mg 08/31/24 Unknown Histor y (Vraylar) clonazepam 1 mg tablet mg 08/31/24 Unknown History clonidine HCl 0.3 mg tablet mg 08/31/24 Unknown Histo ry fluoxetine 40 mg capsule mg 08/31/24 Unknown History lisinopril 40 mg tablet mg 08/31/24 Unknown History Allergies Allergy/AdvReac Type Severity Reaction Status Date / Time No Known Allergies Allergy Verified 08/31/24 08:29 Review of Systems Review of Systems: All systems reviewed & are unremarkable except as noted in HPI and below Exam Narrative: APPEARANCE: Well appearing, no pain, no distress, well-nourished. HEAD: normocephalic, atraumatic. EYES: PERRLA/EOMI, conjunctivae clear. NOSE: Normal no drainage EARS:TMS clear with good light reflex. THROAT: Pharynx clear, no exudate. NECK: Supple. No adenopathy, no masses. RESPIRATORY: Airway patent, respirations nonlabored. Clear to auscultation bilaterally, no rales, rhonchi, wheezing. CARDIOVASCULAR: Regular rate and rhythm without murmurs rubs or gallops. ABDOMINAL: Soft, nontender, nondistended, normal bowel sounds MUSCULOSKELETAL: Erythema of the left great toe NEURO: Alert. Cranial nerves II through XII intact. Good gait. Good coordination SKIN: Warm, dry. Normal Color Course Vital Signs Vital signs: Vital Signs Temperature 98.6 F 10/03/24 14:00 Pulse Rate 87 10/03/24 14:00 Respiratory Rate 20 10/03/24 14:00 Blood Pressure 104/69 10/03/24 14:00 Pulse Oximetry 100 10/03/24 14:00 Oxygen Delivery Room Air 10/03/24 14:00 Temperature 98.6 F 10/03/24 14:00 Pulse Rate 87 10/03/24 14:00 Respiratory Rate 20 10/03/24 14:00 Blood Pressure 104/69 10/03/24 14:00 Pulse Oximetry 100 10/03/24 14:00 Oxygen Delivery Room Air 10/03/24 14:00 Medical Decision Making MDM Narrative Medical decision making narrative: 54-year-old male with history osteomyelitis presents emergency department for evaluation for pain control. Patient states he has attempted to take Tylenol and ibuprofen with no improvement in his pain. Patient does have follow-up with Podiatry scheduled. Patient was provided additional medication for pain control. Patient was encouraged to continue taking has clindamycin. Differential Diagnosis Differential Diagnosis: Cellulitis co bowl he osteomyelitis, diabetic Vital Signs Vital Signs: Vital Signs Temperature 98.6 F 10/03/24 14:00 Pulse Rate 87 10/03/24 14:00 Respiratory Rate 20 10/03/24 14:00 Blood Pressure 104/69 10/03/24 14:00 Pulse Oximetry 100 10/03/24 14:00 Oxygen Delivery Room Air 10/03/24 14:00 Temperature 98.6 F 10/03/24 14:00 Pulse Rate 87 10/03/24 14:00 Respiratory Rate 20 10/03/24 14:00 Blood Pressure 104/69 10/03/24 14:00 Pulse Oximetry 100 10/03/24 14:00 Oxygen Delivery Room Air 10/03/24 14:00 Discharge Plan Discharge Clinical Impression: Chronic osteomyelitis Patient Disposition: Home Condition: Stable Instructions: Antibiotic Form Additional Instructions: Continue antibiotics as directed until completed. Ibuprofen for pain control. [place] as needed for additional pain control. Continue have close follow-up with Podiatry. Patient Language: Irish Prescriptions: New hydrocodone-acetaminophen 5-325 mg tablet 1 tablet PO Q12H PRN (Reason: pain) Qty: 14 0RF No Action fluoxetine 40 mg capsule clonidine HCl 0.3 mg tablet clonazepam 1 mg tablet lisinopril 40 mg tablet aripiprazole 2 mg tablet Vraylar 1.5 mg capsule prednisone 20 mg tablet 40 mg PO DAILY 5 Days Qty: 10 0RF clindamycin HCl [Cleocin HCl] 300 mg capsule 600 mg PO Q8H Qty: 30 0RF Follow-up/Referrals: UNKNOWN,DOCTOR [Primary Care Provider]
[2024-10-03] MEDS: HYDROcodone/acetaminophen (*CRX) 5-325 MG TABLET 1 TAB PO (15:23)
== END 2024-10-03 15:50 | disposition home or self-care (01) ==
PROVIDERS: Emergency Provider Emergency Medicine
DX: M86.671 Other chronic osteomyelitis, right ankle and foot (principal)
CPT/HCPCS: 99283; A9270